=== PATIENT | female | born 1990 | race Caucasian/White ===

== ENCOUNTER 2024-12-02 09:17 | Outpatient (OUT) | payer OTHER, SELFPAY ==
--- OUTSIDE RECORDS SUMMARY | 2024-12-02 09:26 | XMS_ITS | Clinical Summary ---
Author Organization [facility] Invoiceable [facility] tem Address [id number] [address] [place] [address] Care Team Providers Care Crusher Machine Operator Name Role Phone Unavailable Primary Care Provider Unavailabl e Allergies No known active allergies Medications ondansetron ODT (ZOFRAN ODT) 4 mg disintegrating tablet Dissolve 1 tablet (4 mg total) on tongue every 8 (eight) hours as needed for nausea for up to 10 doses. 10 tablet 05/18/19 25 Active Additional Information Patient not taking.Reported on 10/30/2024 ketorolac (TORADOL) 10 mg tablet Take 1 tablet (10 mg total) by mouth every 6 (six) hours as needed for pain. 20 tablet 10/31/19 25 Active ondansetron ODT (ZOFRAN ODT) 4 mg disintegrating tablet Dissolve 1 tablet (4 mg total) on tongue every 8 (eight) hours as needed for nausea for up to 10 doses. 10 tablet 10/31/19 25 Active tamsulosin (FLOMAX) 0.4 mg capsule Take 1 capsule (0.4 mg total) by mouth in the morning. 10 capsule 10/31/19 25 Active Encounters Date Type Department Care Team Description 10/30/2024 3:09 PM EDT - 10/30/2024 5:38 PM EDT Emergency [facility] - Emergency [address] [place] [address] Maryanne Najera, Calculus of ureter (Primary Dx) Discharge Disposition: Home 10/30/2024 Travel 10/22/2024 Travel 09/20/2024 Travel from Last 3 Months Social History Tobacco Use Types Packs/Day Years Used Date Smoking Tobacco: Never Assessed Childcare Answer Date Recorded Childcare Unknown 08/01/2018 Employment Answer Date Recorded Employment Unknown 08/01/2018 Hunger Screening Answer Date Recorded Within the past 12 months we worried whether our food would run out before we got money to buy more. Never True 10/30/2024 Within the past 12 months th e food we bought just didn't last and we didn't have money to get more. Never True 10/30/2024 Purpose - Life Answer Date Recorded Purpose and direction in life Unknown Comments No Sex and Gender Information Value Date Recorded Sex Assigned at Not on file Legal Sex Female 11:45 AM EDT Gender Identity Not on file Sexual Orientation Not on file Last Filed Vital Signs Vital Sign Reading Time Taken Comments Blood Pressure 150/88 10/30/2024 5:36 PM EDT Pulse 98 10/30/2024 5:36 PM EDT Temperature 36.8 C (98.2 F) 10/30/2024 3:04 PM EDT Respiratory Rate 18 10/30/2024 5:36 PM EDT Oxygen Saturation 98% 10/30/2024 5:36 PM EDT Inhaled Oxygen Concentration - - Weight 77.1 kg (170 lb) 10/30/2024 3:04 PM EDT Height 157.5 cm (5' 2 ) 10/30/2024 3:04 PM EDT Body Mass Index 31.09 10/30/2024 3:04 PM EDT Plan of Treatment Health Maintenance Due Date Last Done Comments Depression Screening 2002 Tobacco Screening 2002 Adult BMI Follow Up Plan 2008 DTaP,Tdap and Td Vaccines (1 - Tdap) 2009 Pap Smear 2011 Influenza Vaccine 10/21/2024 Adult BMI Screening 10/30/2025 10/30/2024 Medical Devices Not on file Procedures Procedure Name Priority Date/Time Associated Diagnosis Comments POCT , URINE (NUCG) Routine 10/30/2024 4:43 PM EDT POCT NURSING URINE MACROSCOPIC UA Routine 10/30/2024 4:42 PM EDT POCT NURSING URINE MACROSCOPIC UA Routine 10/30/2024 4:42 PM EDT ER EXTRA URINE MARBLE STAT 10/30/2024 4:27 PM EDT ER EXTRA URINE CULTURE STAT 10/30/2024 4:27 PM EDT ER EXTRA URINE STAT 10/30/2024 4:[address] ABDOMEN AND PELVIS WO CONT STAT 10/30/2024 3:54 PM EDT CBC WITH AUTO DIFFERENTIAL STAT 10/30/2024 3:29 PM EDT EXTRA TUBES PST TOP Routine 10/30/2024 3 :28 PM EDT EXTRA TUBES BLUE TOP Routine 10/30/2024 3:28 PM EDT BASIC METABOLIC PANEL STAT Add-on 10/30/2024 3:28 PM EDT EXTRA TUBES Routine 10/30/2024 3:28 PM EDT from Last 3 Months Results * POCT , urine (10/30/2024 4:43 PM EDT) Pathologist [facility] POC Urine Negative Negative, Indeterminate 10/30/2024 4:36 PM EDT [facility] Urine 10/30/2024 4:43 PM EDT 10/30/2024 4:36 PM EDT us Maryanne Najera DO POINT OF CARE TEST ORDERABLE S Final Result [facility] [address] [place] [address], [place] * (ABNORMAL) POCT Nursing Urine Macroscopic UA (10/30/2024 4:42 PM EDT) Only the most recent of2 resultswithin the time period is included. Pathologist [facility] [facility] Urine Specific Mears 1.025 1.010, 1.015, 1.020, 1.025 11/01/2024 9:33 AM EDT [facility] POC Urine Leukocyte Esterase Negative Negative 11/01/2024 9:33 AM EDT [facility] POC Urine Nitrite Negative Negative 11/01/2024 9:33 AM EDT [facility] POC Urine pH 6.0 5.0, 6.0, 6.5, 7.0, 7.5, 8.0, 8.5, 5.5 11/01/2024 9:33 AM EDT [facility] POC Urine Protein 30 mg/dL(A) Negative 11/01/2024 9:33 AM EDT [facility] POC Urine Glucose Negative Negative 11/01/2024 9:33 AM EDT [facility] POC Urine Ketones 15 mg/dL(A) Negative 11/01/2024 9:33 AM EDT [facility] POC Urine Urobilinogen 1.0 E.U./dL 11/01/2024 9:33 AM EDT [facility] POC Urine Bilirubin Small(A) Negative 11/01/2024 9:33 AM EDT [facility] POC Urine Blood/HGB Large(A) Negative 11/01/2024 9:33 AM EDT [facility] Urine 10/30/2024 4:42 PM EDT 11/01/2024 9:33 AM EDT us Maryanne Najera DO POINT OF CARE TEST ORDERABLE S Final Result [facility] [address] [place] [address], * Extra Urine Butternut (10/30/2024 4:27 PM EDT) Extra Tube Auto Resulted 10/30/2024 6:02 PM EDT [facility] Urine Urine specimen collection, clean catch / Unknown 10/30/2024 4:27 PM EDT 10/30/2024 4:49 PM EDT us Trentadilene Declan Dania DO URINE ORDERABLES Final Resul t Performing Organization Address [facility] de Phone Number [address] [place] [address], [place] * Extra Urine Culture (10/30/2024 4:27 PM EDT) Extra Tube Auto Resulted 10/30/2024 6:02 PM EDT [facility] Urine Urine specimen collection, clean catch / Unknown 10/30/2024 4:27 PM EDT 10/30/2024 4:49 PM EDT us Trentadilene Acostaatib DO URINE ORDERABLES Final Resul t Performing Organization Address [facility] de Phone Number [address] [place] [address], [place] * Extra Urine (10/30/2024 4:27 PM EDT) Extra Tube Auto Resulted 10/30/2024 6:01 PM EDT [facility] Urine Urine / Unknown 10/30/2024 4 :27 PM EDT 10/30/2024 4:49 PM EDT us Trentadilene Declan HernandezDania DO URINE ORDERABLES Final Resul t Performing Organization Address [facility] de Phone Number [address] [place] [address], [place] * CT abdomen and pelvis without contrast (10/30/2024 3:54 PM EDT) Anatomical Region Laterality Modality Body, Abdomen, Body Covera N/A Compu lois Tomography 10/30/2024 3:55 PM EDT Narrative 10/30/2024 3:56 PM EDT CLINICAL INFORMATION: kidney stone TECHNIQUE: CT ABDOMEN AND PELVIS WO CONT CT images of the abdomen and pelvis are obtained. Studies acquired without contrast. There is right hydronephrosis and hydroureter secondary to a 4 mm distal right ureteral calculus. Bilateral nonobstructive renal calculi also appreciated. Noncontrast enhanced liver and spleen unremarkable. Lung bases clear. No focal hepatic or splenic abnormality. Gallbladder nondistended without cholelithiasis. Small bowel is nondistended. There is no free pelvic fluid. No appreciable adnexal amount. Osseous structures appear intact. Appendix unremarkable. IMPRESSION: Mild right hydronephrosis secondary to 4 mm distal right ureteral calculus. Bilateral nonobstructive renal calculi. All CT scans at this facility use dose modulation, iterative reconstruction, and/or weight based dosing when appropriate to reduce radiation dose to as low as reasonably achievable. Finalized by Rolo Perez MD on 10/30/2024 3:56 PM Procedure Note Rolo Perez MD - 10/30/2024 CLINICAL INFORMATION: kidney stone TECHNIQUE: CT ABDOMEN AND PELVIS WO CONT CT images of the abdomen and pelvis are obtained. Studies acquired withoutcontrast. There is right hydronephrosis and hydroureter secondary to a 4mm distal right ureteral calculus. Bilateral nonobstructive renal calculialso appreciated. Noncontrast enhanced liver and spleen unremarkable. Lung bases clear. No focal hepatic or splenic abnormality. Gallbladdernondistended without cholelithiasis. Small bowel is nondistended. There isno free pelvic fluid. No appreciable adnexal amount. Osseous structuresappear intact. Appendix unremarkable. IMPRESSION: Mild right hydronephrosis secondary to 4 mm distal right ureteralcalculus. Bilateral nonobstructive renal calculi. All CT scans at this facility use dose modulation, iterativereconstruction, and/or weight based dosing when appropriate to reduceradiation dose to as low as reasonably achievable. Finalized by Rolo Perez MD on 10/30/2024 3:56 PM us Maryanne Najera DO IMG CT ORDERABLES Final Resu lt * (ABNORMAL) CBC auto differential (10/30/2024 3:29 PM EDT) [facility] WBC 7.6 4 - 11 x10E9/L 10/30/2024 3:46 PM EDT [facility] RBC Count 4.91 3.8 - 5.2 X10E12/L 10/30/2024 3:46 PM EDT [facility] Hemoglobin 13.1 11.7 - 15.5 g/dL 10/30/2024 3:46 PM EDT [facility] Hematocrit 38.7 35 - 47 % 10/30/2024 3:46 PM EDT [facility] MCV 79(L) 80 - 100 fL 10/30/2024 3:46 PM EDT [facility] MCH 26.7(L) 27 - 34 pg 10/30/2024 3:46 PM EDT [facility] MCHC 33.9 32 - 36 g/dL 10/30/2024 3:46 PM EDT [facility] RDW 14.3 11.5 - 15 % 10/30/2024 3:46 PM EDT [facility] Platelet Count 255 150 - 450 X10E9/L 10/30/2024 3:46 PM EDT [facility] MPV 8.3 7 - 12 fL 10/30/2024 3:46 PM EDT [facility] Neutrophils % 77.8 % 10/30/2024 3:46 PM EDT [facility] Lymphocytes % 14.8 % 10/30/2024 3:46 PM EDT [facility] Monocytes % 5.3 % 10/30/2024 3:46 PM EDT [facility] Eosinophils % 1.6 % 10/30/2024 3:46 PM EDT [facility] Basophils % 0.5 % 10/30/2024 3:46 PM EDT [facility] Neutrophils Absolute (A) 5.9 1.5 - 6.6 10*3/uL 10/30/2024 3:46 PM EDT [facility] Lymphocytes Absolute 1.1 1.0 - 3.5 10*3/uL 10/30/2024 3:46 PM EDT [facility] Monocytes Absolute 0.4 0.0 - 0.9 10*3/uL 10/30/2024 3:46 PM EDT [facility] Eosinophils Absolute 0.1 0.0 - 0.4 10*3/uL 10/30/2024 3:46 PM EDT [facility] Basophils Absolute 0.0 0.0 - 0.2 10*3/uL 10/30/2024 3:46 PM EDT [facility] Differential Type AUTOMATED DIFFERENTIAL 10/30/2024 3:46 PM EDT [facility] Blood Venous blood / Unknown Venipuncture / Unknown 10/30/2024 3:29 PM EDT 10/30/2024 3:30 PM EDT us Maryanne Najera DO LAB BLOOD ORDERABLES Final R esult [address] [place] [address], [place] * PST TOP (10/30/2024 3:28 PM EDT) Extra Tube Auto Resulted 10/30/2024 5:01 PM EDT [facility] Blood Venous blood / Unknown 10/30/2024 3:28 PM EDT 10/30/2024 3:31 PM EDT us Maryanne Najera DO LAB BLOOD ORDERABLES Final R esult [address] [place] [address], [place] * Light Blue Top (10/30/2024 3:28 PM EDT) Extra Tube Auto Resulted 10/30/2024 5:01 PM EDT [facility] Blood Venous blood / Unknown 10/30/2024 3:28 PM EDT 10/30/2024 3:31 PM EDT us Maryanne Najera DO LAB BLOOD ORDERABLES Final R esult [facility] [address] [place] [address], [place] * (ABNORMAL) Basic Metabolic Panel (10/30/2024 3:28 PM EDT) SODIUM 140 134 - 146 mmol/L 10/30/2024 3:48 PM EDT [facility] POTASSIUM 3.9 3.5 - 5.0 mmol/L 10/30/2024 3:48 PM EDT [facility] CHLORIDE 109 98 - 109 mmol/L 10/30/2024 3:48 PM EDT [facility] CARBON DIOXIDE 24 22 - 32 mmol/L 10/30/2024 3:48 PM EDT [facility] ANION GAP 7 5 - 15 mmol/L 10/30/2024 3:48 PM EDT [facility] BLOOD UREA NITROGEN 18 5 - 23 mg/dL 10/30/2024 3:48 PM EDT [facility] CREATININE 1.17(H) 0.40 - 1.00 mg/dL 10/30/2024 3:48 PM EDT [facility] Comment:METHOD TRACEABLE TO IDMS STANDARD GLUCOSE 102(H) 65 - 99 mg/dL 10/30/2024 3:48 PM EDT [facility] CALCIUM 8.6 8.5 - 10.5 mg/dL 10/30/2024 3:48 PM EDT [facility] EGFR Non-Race Dependent 63 >=60 ml/min/1.7 3sq.m 10/30/2024 3:48 PM EDT [facility] Comment: eGFR not reported due to non-numeric value for Creatinine. Reported eGFR is based on the CKD-EPI 2020 equation that does not use a race coefficient. Blood Venous blood / Unknown 10/30/2024 3:28 PM EDT 10/30/2024 3:31 PM EDT us Maryanne Najera DO LAB BLOOD ORDERABLES Final R esult [facility] [address] [place] [address], [place] from Last 3 Months Insurance [address] [place] [address] [employer]
--- OUTSIDE RECORDS SUMMARY | 2024-12-02 09:26 | XMS_ITS | Encounter Summary ---
Author Organization [facility] Healthcare Address [address] [facility] [place] [address] Care Team Providers Care Respiratory Therapy Aide Name Role Phone Josiane Cooper MD Primary Care Provider [phone] Savannah Canela CARPENTRY TEACHER Unavailable [phone] Encounter Details Date Type Department Care Team (Latest Contact Info) Description 11/08/2024 Results Follow-Up [facility] Family Medicine [address] [facility] [place] [phone] Savannah Canela NP [address] [facility] [place] [address] Lipid panel, CBC and differential, Comprehensive metabolic panel, Additional followed-up results: 2 Social History Tobacco Use Types Packs/Day Years Used Date Smoking Tobacco: Never Assessed PHQ-2 Answer Date Recorded Patient Health Questionnaire-2 Score 0 11/07/2024 Comments Unknown Sex and Gender Information Value Date Recorded Sex Assigned at Not on file Legal Sex Female 9:35 PM EDT Gender Identity Not on file Sexual Orientation Not on file documented as of this encounter Plan of Treatment Not on file documented as of this encounter Visit Diagnoses Not on filedocumented in this encounter Additional Health Concerns Assessment Noted Time PHQ-9 Depression Total Score: 1 11/08/19 2:11 PM EDT documented as of this encounter Care Teams Respiratory Therapy Aide Relationship Specialty Start Date End Date Josiane Cooper MD [address] [facility] [place], [place] [id number] PCP - General Family Medicine 11/07/24 Savannah Canela NP [address] [place] [address] Nurse Practitioner Family Medicine 11/07/24 documented as of this encounter
--- NOTE | 2024-12-02 09:37 | XR_ITS ---
The [address] [address] Patient Name: SUSAN RICHARDS MRN: [id number] date: 1990 Sex: F Assigned Patient Location: [facility] Current Patient Location: [facility] Accession/Order Number: [id number] Exam Date: 12/02/2024 09:44 Report Date: 12/02/2024 10:11 At the request of: ARISTIDES FLORENTINO MD Procedure: XR abdomen 1V SINGLE VIEW ABDOMEN COMPARISON: None CLINICAL DATA: History of recent right-sided kidney stone. Supine views of the abdomen and pelvis were obtained. There is air and stool along the colon. There is some air within the stomach. No dilated small bowel is seen. Both kidneys are partially obscured. There is question of a tiny stone within the right kidney measuring 2 mm in size. Small stones are also possible on the left. There are no suspect radiopaque ureteral or bladder stones. No soft tissue masses are identified. The bony structures are intact. XR/XR abdomen 1V IMPRESSION: SLIGHT LIMITED STUDY DUE TO BOWEL GAS AND STOOL. POSSIBLE BILATERAL NEPHROLITHIASIS. COMPARISON TO ANY PRIOR EXISTING STUDIES MAY BE HELPFUL. Impression dictated by: Janeen East M.D. 12/02/2024 10:11 AM Dictation Location: [place] [address] Electronically authenticated by: [id number] Y Date: 12/02/2024 10:11
== END 2024-12-02 09:18 | disposition home or self-care (01) ==
PROVIDERS: Family Provider Family Medicine; Visit Provider Urology
DX: N20.0 Calculus of kidney (principal); N20.1 Calculus of ureter
CPT/HCPCS: 74018

== ENCOUNTER 2024-12-04 11:23 | Outpatient (OUT) | payer OTHER, SELFPAY ==
--- OUTSIDE RECORDS SUMMARY | 2024-12-02 09:23 | XMS_ITS | Encounter Summary ---
Author Organization [facility] Address [address] [place] [address] Care Team Providers Care Merchandise Displayer Name Role Phone Lucas Mayers MD Primary Care Provider [phone] Encounter Details Date Type Department Care Team (Latest Contact Info) Description 12/02/2024 9:23 AM EDT - 12/02/2024 11:59 PM EDT Hospital Encounter [facility] [address] [id number] Closed bimalleolar fracture of left ankle, initial encounter Discharge Disposition: Home or Self Care () Social History Tobacco Use Types Packs/Day Years Used Date Smoking Tobacco: Never Smokeless Tobacco: Never Alcohol Use Standard Drinks/Week Comments Never 0 (1 standard drink = 0.6 oz pur e alcohol) [facility] Utilities Answer Date Recorded In the past 12 months has e [employer], gas, oil, or water [employer] threatened to shut off services in your home? No 06/11/2024 Humiliation, Afraid, Rape, and Kick questionnair e Answer Date Recorded Within the last year, have y ou been afraid of your partner or ex-partner? No 12/02/2024 Emotionally Abused Not on file 12/02/2024 Physically Abused Not on file 12/02/2024 Sexually Abused Not on file 12/02/2024 Overall Financial Resource Strain (CARDIA) Answe r Date Recorded How hard is it for you to pa y for the very basics like food, housing, medical care, and heating? Not very hard 06/11/2024 PHQ-2 Answer Date Recorded Patient Health Questionnaire-2 Score 0 12/02/2024 Housing Stability Vital Sign Answer Juan Manuel e Recorded In the last 12 months, was t here a time when you were not able to pay the mortgage or rent on time? No 06/11/2024 Number of Times Moved in the Last Year Not on fi le 06/11/2024 At any time in the past 12 m [facility], were you homeless or living in a correction (including now)? No 06/11/2024 Hunger Vital Sign Answer Date Recorded Within the past 12 months, y ou worried that your food would run out before you got the money to buy more. Never true 06/12/19 25 Ran Out of Food in the Last Year Not on file 06/11/2024 Comments No Sex and Gender Information Value Date Recorded Sex Assigned at Female 12/02/2024 2:30 PM EDT Legal Sex Female 8:27 AM EDT Gender Identity Female 12/02/2024 2:30 PM EDT Sexual Orientation Choose not to disclose 2024 2:30 PM EDT documented as of this encounter Functional Status * Fall Risk Question Answer Date of Assessment Author Worried about fallin 12/02/2024 3:00 PM EDT Shanita Wakefield MA One or more falls in the last year: No 12/02 3:00 PM EDT Shanita Wakefield MA Feels unsteady when walkin 12/02/2024 3 :00 PM EDT Shanita Wakefield MA * Over the past 2 weeks, how often have you been bothered by any of the following problems? Question Answer Date of Assessment Author Thoughts that you would be b kaylie off or hurting yourself in some way Not at all 12/02/2024 3:00 PM EDT Shanita Wakefield MA Patient Health Questionnaire -9 Score 0 12/02/2024 3:00 PM EDT Shanita Wakefield MA Trouble falling or staying asleep, or sleeping too much Not at all 12/02/2024 3:00 PM EDT Shanita Wakefield MA Feeling tired or having jose miguel le energy Not at all 12/02/2024 3:00 PM EDT Shanita Wakefield MA Poor appetite or overeating Not at all 12/02/2024 3: 00 PM EDT Shanita Wakefield MA Feeling bad about yourself - or that you are a failure or have let yourself or your family down Not at all 12/02/2024 3:00 PM EDT Shanita Pelletier do, MA Trouble concentrating on thi ngs, such as reading the newspaper or watching television Not at all 12/02/2024 3:00 PM EDT Shanita Wakefield MA Moving or speaking so slowly that other people could have noticed? Or the opposite - being so fidgety or restless that you have been moving around a lot more than usual. Not at all 12/02/2024 3:00 PM EDT Shanita Wakefield MA * Over the past 2 weeks, how often have you been bothered by any of the following problems? Question Answer Date of Assessment Author Little interest or pleasure in doing things Not at all 12/02/2024 3:00 PM EDT Shanita Wakefield MA Feeling down, depressed, or hopeless Not at all 12/02/2024 3:00 PM EDT Shanita Wakefield MA Patient Health Questionnaire -2 Score 0 12/02/2024 3:00 PM MELISSAT Shanita Wakefield MA documented as of this encounter Medications at Time of Discharge cholecalciferol (Vitamin D-3) 50 MCG (2000 UT) tablet Take by mouth in the morning. 05/28/2024 ergocalciferol (Vitamin D-2) 1.25 MG (14083 Units) capsuleIndications:S /P surgical manipulation of ankle joint Take 1 capsule (50,000 Units) by mouth 1 (one) time per week. 4 capsule 11 05/28/2024 ergocalciferol (Vitamin D-2) 1.25 MG (86716 Units) capsuleIndications:C losed bimalleolar fracture of left ankle, initial encounter Take 1 capsule by mouth once a week 4 capsule 06/26/2024 ondansetron ODT (Zofran-ODT) 4 mg disintegrating tablet Take 4 mg by mouth every 8 (eight) hours if needed. 05/17/2024 documented as of this encounter Plan of Treatment Upcoming Encounters Date Type Department Care Team (Late st Contact Info) Description 06/02/2025 1:00 PM EDT Follow-Up [facility] [address] [place] [address] [place] [address] Patrick Randle MD [address] [address] documented as of this encounter Procedures Procedure Name Priority Date/Time Associated Diagnosis Comments XR ANKLE 3+ VIEWS LEFT Routine 12/02/2024 2:51 PM EDT Closed bimalleolar fracture of left ankle, initial encounter documented in this encounter Results * XR ankle 3+ views left (12/02/2024 2:51 PM EDT) Anatomical Region Laterality Modality Lower Extremities, Ankle Left Compute d Radiography 12/02/2024 3:04 PM EDT Impressions 12/02/2024 4:35 PM EDT * No acute osseous abnormalities. * Distal tibia fibula fracture fixation hardware present without complication. * Apparent healing of tibia-fibula fractures. Approved by:Sally Stock12/02/2024 3:36 PM. IPj MD,have reviewed the image(s) and agree with the findings in this report. Electronically signed: Pj Crump MD. Narrative 12/02/2024 4:35 PM EDT XR ANKLE 3+ VIEWS LEFT 12/02/2024 2:44 PM CLINICAL INDICATIONS: Closed bimalleolar fracture of the left ankle COMPARISON: Multiple radiographs of the left ankle most recent 09/03/2024 FINDINGS: Distal tibia fibula fracture fixation hardware present without complication. 1.2 cm bone fragment posterior to the proximal end of the fibular fixation plate. Fractures appear healed. Ankle joint is aligned without significant degenerative change. Plantar calcaneal enthesophyte. No destructive osseous lesions. Osseous structures are well mineralized. Procedure Note Pj Crump MD - 12/02/2024 XR ANKLE 3+ VIEWS LEFT 12/02/2024 2:44 PM CLINICAL INDICATIONS: Closed bimalleolar fracture of the left ankle COMPARISON: Multiple radiographs of the left ankle most [id number]/03/2024 FINDINGS: Distal tibia fibula fracture fixation hardware present withoutcomplication. 1.2 cm bone fragment posterior to the proximal end of the fibular fixationplate. Fractures appear healed. Ankle joint is aligned without significantdegenerative change. Plantar calcaneal enthesophyte. No destructive osseous lesions.Osseous structures are well mineralized. IMPRESSION: *No acute osseous abnormalities. *Distal tibia fibula fracture fixation hardware present without complication. *Apparent healing of tibia-fibula fractures. Approved by:Sally Stock12/02/2024 3:36 PM. I, Pj Crump MD,have reviewed the image(s) and agree with thefindings in this report. Electronically signed: Pj Crump MD. Patrick Randle MD IMG XR PROCEDURES Final Result documented in this encounter Visit Diagnoses Diagnosis Closed bimalleolar fracture of left ankle, initial encounter documented in this encounter Care Teams Merchandise Displayer Relationship Specialty Start Date End Date Lucas Mayers MD [address] [place] [address] PCP - General Family Medicine 05/28/24 documented as of this encounter
--- OUTSIDE RECORDS SUMMARY | 2024-12-02 15:00 | XMS_ITS | Encounter Summary ---
Author Organization [facility] Address [address] [place] [address] Care Team Providers Care Reproduction Technician Name Role Phone Lucas Mayers MD Primary Care Provider [phone] Reason for Visit * Reason Comments Follow-up Encounter Details Date Type Department Care Team ([facility] st Contact Info) Description 12/02/2024 3:00 PM EDT Follow-Up [facility] [address] [place] [address] [place] [phone] Patrick Randle MD [address] [address] Closed bimalleolar fracture, left, with routine healing, subsequent encounter (Primary Dx) Social History Tobacco Use Types Packs/Day Years Used Date Smoking Tobacco: Never Smokeless Tobacco: Never Tobacco Cessation:Counseling Given: Not Answered Alcohol Use Standard Drinks/Week Comments Never 0 (1 standard drink = 0.6 oz pur e alcohol) [facility] Utilities Answer Date Recorded In the past 12 months has [employer] [place] [employer], gas, oil, or water [employer] threatened to shut off services in your [...] any time in the past 12 m [facility], were you homeless or living in a prison (including now)? No 06/11/2024 Hunger Vital Sign [...] PM EDT documented as of this encounter Last Filed Vital Signs Vital Sign Reading Time Taken Comments Blood Pressure - - Pulse - - Temperature - - Respiratory Rate - - Oxygen Saturation - - Inhaled Oxygen Concentration - - Weight 77.1 kg (170 lb) 12/02/2024 3:06 PM EDT Height 157.5 cm (5' 2 ) 12/02/2024 3:06 PM EDT Body Mass Index 31.09 12/02/2024 3:06 PM EDT documented in this encounter Functional Status * Fall Risk [...] Questionnaire -2 Score 0 12/02/2024 3:00 PM EDT Shanita Wakefield MA documented as of this encounter Progress Notes * Patrick Randle MD - 12/02/2024 3:00 PM EDT Images from the original note were not included. Orthopedic Surgery Subjective Chief complaint: Chief Complaint Patient presents with Left Ankle - Follow-up 12/02/24 Laurence Buchanan is a 34 y.o. year old female here for follow up 6+ month s/p ORIF left ankle performed on 05/28/2024. Doing well. Denies pain. FWB in regular shoes. Continue to do home ankle exercises for ROM and strengthening. Reports occasional stiffness especially in morning. No issues or concerns today. She has been taking Vitamin D. Denies weakness, tingling or numbness. ROS Constitutional: Denies Musculoskeletal: No back pain Skin: Denies any skin lesions Neurological: No tingling, numbness, weakness History Past Surgical History: Procedure Laterality Date WISDOM TOOTH EXTRACTION Past Medical History: Diagnosis Date Closed bimalleolar fracture of right ankle Objective General: BMI 31.09 No acute distress, comfortable Respiratory: Unlabored breathing with normal rate, no cough Cardiovascular: Warm well perfused extremities Psych: Appropriate mood behavior Evaluation of the left ankle/foot: - well-healed surgical scars - Good clinical alignment - No swelling - Non-tender to palpation - Active ankle ROM 5-40, subtalar ROM 30-15 - 5/5 all muscle groups - Foot well perfused and NVI. Imaging: Weight bearing left ankle X-rays, 3 views obtained today 12/02/24 shows stable alignment and hardware, and healed ankle fracture Imaging was reviewed and interpreted by me, and findings were reviewed with the patient. Assessment/Plan Laurence Buchanan is a 34 y.o. year old female 6+ months s/p ORIF left ankle fracture (DOS 05/28/21) - progressing very well No issues or concerns today Today's X-rays were reviewed Vit D was optimized (repeat Vit D on 07/09/24 is 41.1 up from 12.2 on 05/28/24) Plan - Continue to advance activities as tolerated using pain as a guide, no restrictions - Continue home exercise program for ankle ROM and strengthening - Continue proper / supportive shoewear - Continue Vit D intake - Follow-up in 6 months The patient understands and agrees to the management plan, and all patient questions have been answered to her satisfaction. Closed bimalleolar fracture, left, with routine healing, subsequent encounter Patrick Randle MD Orthopedic Surgery, [employer] [facility] 12/02/24 documented in this encounter Plan of Treatment Upcoming Encounters Date Type Department Care Team (Late st Contact Info) Description 06/02/2025 1:00 PM EDT Follow-Up [facility] Orthopaedics [address] [place] [address] [place] [address] Patrick Randle MD [address] [facility] [address] [place] [address] documented as of this encounter Results * XR ankle 3+ [...] Multiple radiographs of the left ankle most [id number]/03/2024 FINDINGS: Distal tibia fibula fracture fixation hardware [...] this encounter Visit Diagnoses Diagnosis Closed bimalleolar fracture, left, with routine healing, subsequent encounter- Primary Closed bimalleolar fracture of left ankle, initial encounter documented in this encounter Care Teams Reproduction Technician Relationship Specialty Start Date End Date Lucas Mayers MD [address] [place] [address] PCP - General Family Medicine 05/28/24 documented as of this encounter
--- OUTSIDE RECORDS SUMMARY | 2024-12-04 11:26 | XMS_ITS | Encounter Summary ---
Author Organization [facility] Healthcare Address [address] [facility] [place] [address] Care Team Providers Care Aoc Aadc Operations Staff Officer Name Role Phone Josiane Cooper MD Primary Care Provider [phone] Savannah Canela MEDICAL GENETICIST Unavailable [phone] Encounter Details Date Type Department Care Team (Latest Contact Info) Description 11/08/2024 Results Follow-Up [facility] Family Medicine [address] [facility] [place] [phone] Savannah Canela NP [address] [facility] [place] [address] Lipid panel, CBC and differential, Comprehensive metabolic [...] documented as of this encounter Care Teams Aoc Aadc Operations Staff Officer Relationship Specialty Start Date End Date Josiane Cooper MD [address] [facility] [place], [place] [phone] PCP - General Family Medicine 11/07/24 Savannah Canela NP [address] [place] [address] Nurse Practitioner Family Medicine 11/07/24 documented as of this encounter
--- OUTSIDE RECORDS SUMMARY | 2024-12-04 11:26 | XMS_ITS | Clinical Summary ---
Author Organization [facility] Healthcare Address [address] [facility] [place] [address] Care Team Providers Care Photographic Equipment Inspector Name Role Phone Josiane Cooper MD Primary Care Provider [phone] Savannah Canela SOFTWARE INTERN Unavailable [phone] Allergies No known active allergies Medications ketorolac (Toradol) 10 MG tablet Take 10 mg by mouth every 6 (six) hours if needed 5 Active ondansetron ODT (Zofran-ODT) 4 MG disintegrating tablet Take 4 mg by mouth every 8 (eight) hours if needed 5 Active tamsulosin (Flomax) 0.4 MG 24 hr capsuleIndications :Kidney stones Take 1 capsule (0.4 mg) by mouth in the morning. 30 capsule 5 12/12/19 25 Active tamsulosin (Flomax) 0.4 MG 24 hr capsule Take 0.4 mg by mouth in the morning. 5 11/12/19 25 Discontin ued(Reord er) Encounters Date Type Department Care Team Description 11/11/2024 Orders Only [facility] [address] [place] [address] Savannah Canela NP Kidney stones (Primary Dx) 11/08/2024 Results Follow-Up [facility] [address] [facility] [place] [address] Savannah Canela NP Lipid panel, CBC and differential, Comprehensive metabolic panel, Additional followed-up results: 2 11/07/2024 2:00 PM EDT Office Visit [facility] Medicine [address] [facility] [place] [address] Savannah Canela NP Wellness examination (Primary Dx); Kidney stones; History of vitamin D deficiency; Encounter to establish care with new provider 11/07/2024 Bamboo flowsheet [facility] [address] [place] [address] Savannah Canela NP 11/07/2024 Travel from Last 3 Months Family History Medical History Relation Name Comments Multiple sclerosis Sister Relation Name Status Comments Sister Social History Tobacco Use Types Packs/Day Years [...] Sign Reading Time Taken Comments Blood Pressure 134/80 11/07/2024 2:02 PM EDT Pulse 94 11/07/2024 2:02 PM EDT Temperature 36.3 C (97.3 F) 11/07/2024 2:02 PM EDT Respiratory Rate - - Oxygen Saturation 98% 11/07/2024 2:02 PM EDT Inhaled Oxygen Concentration - - Weight 78.2 kg (172 lb 6.4 oz) 11/07/2024 2:02 P M EDT Height 158.8 cm (5' 2.5 ) 11/07/2024 2:02 PM EDT Body Mass Index 31.03 11/07/2024 2:02 PM EDT Plan of Treatment Health Maintenance Due Date Last Done Comments Pap Smear 2011 Cervical Cancer Screening 2020 HPV/Cotest 2020 Influenza Vaccine (#1) 2024 Procedures Procedure Name Priority Date/Time Associated Diagnosis Comments VITAMIN D 25 HYDROXY TOTAL Routine 11/07/2024 2:33 PM EDT Wellness examination TSH W/REFLEX TO FT4 Routine 11/07/2024 2 :33 PM EDT Wellness examination COMPREHENSIVE METABOLIC PANEL Routine 11/07/2024 2:33 PM EDT Wellness examination CBC (INCLUDES DIFF/PLT) Routine 11/07/2024 2:33 PM EDT Wellness examination LIPID PANEL Routine 11/07/2024 2:33 PM EDT Wellness examination from Last 3 Months Results * TSH W/REFLEX TO FT4 (11/07/2024 2:33 PM EDT) TSH W/REFLEX TO FT4 0.54 mIU/L [facility] Comment: Reference Range > or = 20 Years 0.40-4.50 Ranges First trimester 0.26-2.66 Second trimester 0.55-2.73 Third trimester 0.43-2.91 11/07/2024 2:33 PM EDT 11/07/2024 2:34 PM EDT Narrative Resulting Agency Comment Performing Organization Information Site ID: QPT Name: [facility] Address: [address] [place] [address], [address] [place] [phone] Director: Korey Anna MD Savannah Canela NP LAB BLOOD ORDERABLES Final Result [facility] * Vitamin D 25 hydroxy (11/07/2024 2:33 PM EDT) VITAMIN D,25-OH,TOTAL,IA 40 30 - 100 ng/mL [facility] Comment: Vitamin D Status 25-OH Vitamin D: Deficiency: <20 ng/mL Insufficiency: 20 - 29 ng/mL Optimal: > or = 30 ng/mL For 25-OH Vitamin D testing on patients on D2-supplementation and patients for whom quantitation of D2 and D3 fractions is required, the QuestAssureD(TM) 25-OH VIT D, (D2,D3), LC/MS/MS is recommended: order code 98482 (patients >2yrs). See Note 1 Note 1 For additional information, please refer to http://education.[employer]/faq/ANG613 (This link is being provided for informational/ educational purposes only.) Blood Venous blood specimen / Unknown 11/07/2024 2:33 PM EDT 11/07/2024 2:34 PM EDT Narrative Resulting Agency Comment Performing Organization Information Site ID: QPT Name: [facility] Address: [address] [place] [address], [address] [place] [phone] Director: Korey Anna MD Savannah Canela SOFTWARE INTERN LAB BLOOD ORDERABLES Final Result [facility] * CBC and differential (11/07/2024 2:33 PM EDT) WHITE BLOOD CELL COUNT 5.5 3.8 - 10.8 Thousand/u L [facility] RED BLOOD CELL COUNT 4.48 3.80 - 5.10 Million/uL [facility] HEMOGLOBIN 12.3 11.7 - 15.5 g/dL [facility] HEMATOCRIT 37.9 35.0 - 45.0 % [facility] MCV 84.6 80.0 - 100.0 fL [facility] MCH 27.5 27.0 - 33.0 pg [facility] MCHC 32.5 32.0 - 36.0 g/dL [facility] Comment: For adults, a slight decrease in the calculated MCHC value (in the range of 30 to 32 g/dL) is most likely not clinically significant; however, it should be interpreted with caution in correlation with other red cell parameters and the patient's clinical condition. RDW 13.0 11.0 - 15.0 % [facility] PLATELET COUNT 253 140 - 400 Thousand/u L [facility] MPV 10.1 7.5 - 12.5 fL [facility] ABSOLUTE NEUTROPHILS 3,977 1,500 - 7,800 cells/uL [facility] ABSOLUTE LYMPHOCYTES 1,161 850 - 3,900 cells/uL [facility] ABSOLUTE MONOCYTES 237 200 - 950 cells/uL [facility] ABSOLUTE EOSINOPHILS 88 15 - 500 cells/uL [facility] ABSOLUTE BASOPHILS 39 0 - 200 cells/uL [facility] NEUTROPHILS 72.3 % [facility] LYMPHOCYTES 21.1 % [facility] MONOCYTES 4.3 % [facility] EOSINOPHILS 1.6 % [facility] BASOPHILS 0.7 % [facility] Blood Venous blood specimen / Unknown 11/07/2024 2:33 PM EDT 11/07/2024 2:34 PM EDT Narrative Resulting Agency Comment Performing Organization Information Site ID: QPT Name: [facility] Address: [address] , [address] [place] [address] Director: Korey Anna MD Savannah Canela LAB BLOOD ORDERABLES Final Result Performing Organization Address City/[facility] Co de Phone Number [facility] * (ABNORMAL) Lipid panel (11/07/2024 2:33 PM EDT) [facility] Signature CHOLESTEROL, TOTAL 184 <200 mg/dL [facility] HDL CHOLESTEROL 56 > OR = 50 mg/dL [facility] TRIGLYCERIDES 50 <150 mg/dL [facility] LDL CHOLESTEROL 115(H) mg/dL (calc) [facility] Comment: Reference range: <100 Desirable range <100 mg/dL for primary prevention; <70 mg/dL for patients with CHD or diabetic patients with > or = 2 CHD risk factors. LDL-C is now calculated using the Barry calculation, which is a validated novel method providing better accuracy than the Friedewald equation in the estimation of LDL-C. Carlton CHAVIS et al. SENTHIL. 2013;310(19): 4375-4453 (http://education.[employer]/faq/ZVO271) CHOL/HDLC RATIO 3.3 <5.0 (calc) [facility] NON HDL CHOLESTEROL 128 <130 mg/dL (calc) [facility] Comment: For patients with diabetes plus 1 major ASCVD risk factor, treating to a non-HDL-C goal of <100 mg/dL (LDL-C of <70 mg/dL) is considered a therapeutic option. Blood Venous blood specimen / Unknown 11/07/2024 2:33 PM EDT 11/07/2024 2:34 PM EDT Narrative Resulting Agency Comment Performing Organization Information Site ID: QPT Name: [facility] Address: [address] , [address] [place] [address] Director: Korey Anna MD [facility] SOFTWARE INTERN LAB BLOOD ORDERABLES Final Result Performing Organization Address [facility] Co de Phone Number [facility] * Comprehensive metabolic panel (11/07/2024 2:33 PM EDT) Glucose 71 65 - 99 mg/dL [facility] Comment: Fasting reference interval BUN 14 7 - 25 mg/dL [facility] Creatinine 0.87 0.50 - 0.97 mg/dL [facility] EGFR 90 > OR = 60 mL/min/1. 73m2 [facility] BUN/CREATININE RATIO SEE NOTE: 6 - 22 (calc) [facility] Comment: Not Reported: BUN and Creatinine are within reference range. Sodium 143 135 - 146 mmol/L [facility] Potassium, Bld 3.8 3.5 - 5.3 mmol/L [facility] Chloride 106 98 - 110 mmol/L [facility] Carbon Dioxide 28 20 - 32 mmol/L [facility] Calcium 8.8 8.6 - 10.2 mg/dL [facility] PROTEIN, TOTAL 7.1 6.1 - 8.1 g/dL [facility] ALBUMIN 4.4 3.6 - 5.1 g/dL [facility] GLOBULIN 2.7 1.9 - 3.7 g/dL (calc) [facility] ALBUMIN/GLOBULIN RATIO 1.6 1.0 - 2.5 (calc) [facility] BILIRUBIN, TOTAL 0.8 0.2 - 1.2 mg/dL [facility] ALKALINE PHOSPHATASE 47 31 - 125 U/L [facility] AST 15 10 - 30 U/L [facility] ALT 12 6 - 29 U/L [facility] Blood Venous blood specimen / Unknown 11/07/2024 2:33 PM EDT 11/07/2024 2:34 PM EDT Narrative Resulting Agency Comment Performing Organization Information Site ID: QPT Name: [facility] Address: [address] [place] [address], [address] [place] [phone] Director: Korey Anna MD Savannah Canela NP LAB BLOOD ORDERABLES Final Result [facility] from Last 3 Months Insurance [employer] Care Teams Photographic Equipment Inspector Relationship Specialty Start Date End Date Josiane Cooper MD [address] [place], [place] [phone] PCP - General Family Medicine 11/07/24 Savannah Canela NP [address] [place], [place] [phone] Nurse Practitioner Family Medicine 11/07/24
--- OUTSIDE RECORDS SUMMARY | 2024-12-04 11:26 | XMS_ITS | Clinical Summary ---
Author Organization [facility] tem Address [id number] [address] [place] [address] Care Team Providers Care Controls Design Engineer Name Role Phone Unavailable Primary Care Provider [...] EDT - 10/30/2024 5:[address] [facility] - Emergency [address] [place] [address] Maryanne Najera, Calculus of ureter (Primary Dx) [...] , urine (10/30/2024 4:43 PM EDT) Pathologist [facility] POC Urine Negative Negative, Indeterminate 10/30/2024 4:36 PM EDT [facility] Urine 10/30/2024 4:43 PM EDT 10/30/2024 4:36 PM EDT us Maryanne Najera DO POINT OF CARE TEST ORDERABLE S Final Result [facility] [address] [place] [address], [place] * (ABNORMAL) POCT Nursing Urine Macroscopic UA (10/30/2024 4:42 PM EDT) Only the most recent of2 resultswithin the time period is included. Pathologist [facility] POC Urine Specific [facility] 1.025 1.010, 1.015, 1.020, 1.025 11/01/2024 9:33 AM EDT [facility] POC Urine Leukocyte Esterase Negative Negative 11/01/2024 9:33 AM EDT [facility] POC Urine Nitrite Negative Negative 11/01/2024 9:33 AM EDT [facility] POC Urine pH 6.0 5.0, 6.0, 6.5, 7.0, 7.5, 8.0, 8.5, 5.5 11/01/2024 9:33 AM EDT [facility] POC Urine Protein 30 mg/dL(A) Negative 11/01/2024 9:33 AM EDT [facility] POC Urine Glucose Negative Negative 11/01/2024 9:33 AM EDT [facility] POC Urine Ketones 15 mg/dL(A) Negative 11/01/2024 9:33 AM EDT [facility] POC Urine Urobilinogen 1.0 E.U./dL 11/01/2024 9:33 AM EDT [facility] POC Urine Bilirubin Small(A) Negative 11/01/2024 9:33 AM EDT [facility] POC Urine Blood/HGB Large(A) Negative 11/01/2024 9:33 AM EDT [facility] Urine 10/30/2024 4:42 PM EDT 11/01/2024 9:33 AM EDT us Maryanne Najera DO POINT OF CARE TEST ORDERABLE S Final Result [facility] [address] [place] [address], * Extra Urine [place] (10/30/2024 4:27 PM EDT) Extra Tube Auto Resulted 10/30/2024 6:02 PM EDT [facility] Urine Urine specimen collection, clean catch / Unknown 10/30/2024 4:27 PM EDT 10/30/2024 4:49 PM EDT us Trentadilene Declan Dania DO URINE ORDERABLES Final Resul t Performing Organization Address [facility] de Phone Number [address] [place] [address], [place] * Extra Urine Culture (10/30/2024 4:27 PM EDT) Extra Tube Auto Resulted 10/30/2024 6:02 PM EDT [facility] Urine Urine specimen collection, clean catch / Unknown 10/30/2024 4:27 PM EDT 10/30/2024 4:49 PM EDT us Trentadilene Acostaatib DO URINE ORDERABLES Final Resul t Performing Organization Address [facility] de Phone Number [address] [place] [address], [place] * Extra Urine (10/30/2024 4:27 PM EDT) Extra Tube Auto Resulted 10/30/2024 6:01 PM EDT [facility] Urine Urine / Unknown 10/30/2024 4 :27 PM EDT 10/30/2024 4:49 PM EDT us Trentadilene Declan HernandezDania DO URINE ORDERABLES Final Resul t Performing Organization Address [facility] de Phone Number [address] [place] [address], [place] * CT abdomen and pelvis without [...] CBC auto differential (10/30/2024 3:29 PM EDT) [facility] WBC 7.6 4 - 11 x10E9/L 10/30/2024 3:46 PM EDT [facility] RBC Count 4.91 3.8 - 5.2 X10E12/L 10/30/2024 3:46 PM EDT [facility] Hemoglobin 13.1 11.7 - 15.5 g/dL 10/30/2024 3:46 PM EDT [facility] Hematocrit 38.7 35 - 47 % 10/30/2024 3:46 PM EDT [facility] MCV 79(L) 80 - 100 fL 10/30/2024 3:46 PM EDT [facility] MCH 26.7(L) 27 - 34 pg 10/30/2024 3:46 PM EDT [facility] MCHC 33.9 32 - 36 g/dL 10/30/2024 3:46 PM EDT [facility] RDW 14.3 11.5 - 15 % 10/30/2024 3:46 PM EDT [facility] Platelet Count 255 150 - 450 X10E9/L 10/30/2024 3:46 PM EDT [facility] MPV 8.3 7 - 12 fL 10/30/2024 3:46 PM EDT [facility] Neutrophils % 77.8 % 10/30/2024 3:46 PM EDT [facility] Lymphocytes % 14.8 % 10/30/2024 3:46 PM EDT [facility] Monocytes % 5.3 % 10/30/2024 3:46 PM EDT [facility] Eosinophils % 1.6 % 10/30/2024 3:46 PM EDT [facility] Basophils % 0.5 % 10/30/2024 3:46 PM EDT [facility] Neutrophils Absolute (A) 5.9 1.5 - 6.6 10*3/uL 10/30/2024 3:46 PM EDT [facility] Lymphocytes Absolute 1.1 1.0 - 3.5 10*3/uL 10/30/2024 3:46 PM EDT [facility] Monocytes Absolute 0.4 0.0 - 0.9 10*3/uL 10/30/2024 3:46 PM EDT [facility] Eosinophils Absolute 0.1 0.0 - 0.4 10*3/uL 10/30/2024 3:46 PM EDT [facility] Basophils Absolute 0.0 0.0 - 0.2 10*3/uL 10/30/2024 3:46 PM EDT [facility] Differential Type AUTOMATED DIFFERENTIAL 10/30/2024 3:46 PM EDT [facility] Blood Venous blood / Unknown Venipuncture / Unknown 10/30/2024 3:29 PM EDT 10/30/2024 3:30 PM EDT us Maryanne Najera DO LAB BLOOD ORDERABLES Final R esult [address] [place] [address], [place] * PST TOP (10/30/2024 3:28 PM EDT) Extra Tube Auto Resulted 10/30/2024 5:01 PM EDT [facility] Blood Venous blood / Unknown 10/30/2024 3:28 PM EDT 10/30/2024 3:31 PM EDT us Maryanne Najera DO LAB BLOOD ORDERABLES Final R esult [address] [place] [address], [place] * Light Blue Top (10/30/2024 3:28 PM EDT) Extra Tube Auto Resulted 10/30/2024 5:01 PM EDT [facility] Blood Venous blood / Unknown 10/30/2024 3:28 PM EDT 10/30/2024 3:31 PM EDT us Maryanne Najera DO LAB BLOOD ORDERABLES Final R esult [facility] [address] [place] [address], [place] * (ABNORMAL) Basic Metabolic Panel (10/30/2024 3:28 PM EDT) SODIUM 140 134 - 146 mmol/L 10/30/2024 3:48 PM EDT [facility] POTASSIUM 3.9 3.5 - 5.0 mmol/L 10/30/2024 3:48 PM EDT [facility] CHLORIDE 109 98 - 109 mmol/L 10/30/2024 3:48 PM EDT [facility] CARBON DIOXIDE 24 22 - 32 mmol/L 10/30/2024 3:48 PM EDT [facility] ANION GAP 7 5 - 15 mmol/L 10/30/2024 3:48 PM EDT [facility] BLOOD UREA NITROGEN 18 5 - 23 mg/dL 10/30/2024 3:48 PM EDT [facility] CREATININE 1.17(H) 0.40 - 1.00 mg/dL 10/30/2024 3:48 PM EDT [facility] Comment:METHOD TRACEABLE TO IDMS STANDARD GLUCOSE 102(H) 65 - 99 mg/dL 10/30/2024 3:48 PM EDT [facility] CALCIUM 8.6 8.5 - 10.5 mg/dL 10/30/2024 3:48 PM EDT [facility] EGFR Non-Race Dependent 63 >=60 ml/min/1.7 3sq.m 10/30/2024 3:48 PM EDT [facility] Comment: eGFR not reported due to non-numeric value for Creatinine. Reported eGFR is based on the CKD-EPI 2020 equation that does not use a race coefficient. Blood Venous blood / Unknown 10/30/2024 3:28 PM EDT 10/30/2024 3:31 PM EDT us Maryanne Najera DO LAB BLOOD ORDERABLES Final R esult [facility] [address] [place] [address], [place] from Last 3 Months Insurance [address] [place] [address] [employer]
--- OUTSIDE RECORDS SUMMARY | 2024-12-04 11:26 | XMS_ITS | Encounter Summary ---
Author Organization [facility] Address [address] [place] [address] Care Team Providers Care Make Up Man Name Role Phone Lucas Mayers MD Primary Care Provider [phone] Reason for Visit * Reason Comments Med Refill Encounter Details Date Type Department Care Team (Late st Contact Info) Description 06/26/2024 Refill [facility] [address] [place] [address] [place] [phone] Patrick Randle MD [address] [address] Closed bimalleolar fracture of left ankle, initial encounter Social History Tobacco Use Types Packs/Day Years Used Date Smoking Tobacco: Never Smokeless Tobacco: Never Alcohol Use Standard Drinks/Week Comments Never 0 (1 standard drink = 0.6 oz pur e alcohol) [facility] Utilities Answer Date Recorded In the past 12 months has [employer], gas, oil, or water [employer] threatened to shut off services in your home? No 06/11/2024 Humiliation, Afraid, Rape, and Kick questionnair e Answer Date Recorded Within the last year, have y ou been afraid of your partner or ex-partner? No 06/11/2024 Emotionally Abused Not on file 06/11/2024 Physically Abused Not on file 06/11/2024 Sexually Abused Not on file 06/11/2024 Overall Financial Resource Strain (CARDIA) Answe r Date Recorded How hard is it for you to pa y for the very basics like food, housing, medical care, and heating? Not very hard 06/11/2024 PHQ-2 Answer Date Recorded Patient Health Questionnaire-2 Score 0 06/11/2024 Housing Stability Vital Sign Answer Juan Manuel e Recorded In the last 12 months, was t here a time when you were not able to pay the mortgage or rent on time? No 06/11/2024 Number of Times Moved in the Last Year Not on fi le 06/11/2024 At any time in the past 12 m [facility], were you homeless or living in a assisted (including now)? No 06/11/2024 Hunger Vital Sign [...] PM EDT documented as of this encounter Miscellaneous Notes * Telephone Encounter - Shanita Wakefield MA - 06/26/2024 1:09 PM EDT Approving, but needs appt for additional refills. documented in this encounter Plan of Treatment Upcoming Encounters Date Type Department Care Team (Late st Contact Info) Description 06/02/2025 1:00 PM EDT [facility] [address] [place] [address] [place] [address] Patrick Randle MD [address] [place] [phone] documented as of this encounter Visit Diagnoses Diagnosis Closed bimalleolar fracture of left ankle, initial encounter documented in this encounter Care Teams Make Up Man Relationship Specialty Start Date End Date Lucas Mayers MD [address] [place] [address] PCP - General Family Medicine 05/28/24 documented as of this encounter
--- OUTSIDE RECORDS SUMMARY | 2024-12-04 11:26 | XMS_ITS | Clinical Summary ---
Author Organization [facility] Address [address] [place] [address] Care Team Providers Care Pickle Maker Name Role Phone Lucas Mayers MD Primary Care Provider [phone] Allergies No known active allergies Medications ondansetron ODT (Zofran-ODT) 4 mg disintegrating tablet Take 4 mg by mouth every 8 (eight) hours if needed. 05/18/19 25 Active ergocalciferol (Vitamin D-2) 1.25 MG (19515 Units) capsuleIndications :S/P surgical manipulation of ankle joint Take 1 capsule (50,000 Units) by mouth 1 (one) time per week. 4 capsule 11 05/29/19 25 026 Active Additional Information Patient not taking.Reported on 09/03/2024 ergocalciferol (Vitamin D-2) 1.25 MG (16978 Units) capsuleIndications :Closed bimalleolar fracture of left ankle, initial encounter Take 1 capsule by mouth once a week 4 capsule 06/27/19 25 Active Additional Information Patient not taking.Reported on 09/03/2024 cholecalciferol (Vitamin D-3) 50 MCG (1999 UT) tablet Take by mouth in the morning. 05/29/19 25 Active Active Problems No known active problems Encounters Date Type Department Care Team Description 12/02/2024 3:00 PM EDT Follow-Up [facility] [address] [place] [address] [place] [phone] Patrick Randle MD Closed bimalleolar fracture, left, with routine healing, subsequent encounter (Primary Dx) 12/02/2024 9:23 AM EDT - 12/02/2024 11:59 PM [address]T Hospital Encounter [facility] [address] [place] [address] [place] [address] Closed bimalleolar fracture of left ankle, initial encounter Discharge Disposition: Home or Self Care (01) 09/03/2024 9:30 AM EDT Follow-Up [facility] [address] [place] [address] [place] [address] Patrick Randle MD Closed bimalleolar fracture of left ankle, initial encounter (Primary Dx) 09/03/2024 8:38 AM EDT - 09/03/2024 11:59 PM EDT Hospital Encounter [facility] [address] [place] [address] [place] [address] Closed bimalleolar fracture of left ankle, initial encounter Discharge Disposition: Home or Self Care () from Last 3 Months Family History Medical History Relation Name Comments No Known Problems Father No Known Problems Mother Relation Name Status Comments Father Mother Social History Tobacco Use Types Packs/Day Years Used Date Smoking Tobacco: Never Smokeless Tobacco: Never Tobacco Cessation:Counseling Given: Not Answered Alcohol Use Standard Drinks/Week Comments Never 0 (1 standard drink = 0.6 oz pur e alcohol) [facility] Utilities Answer Date Recorded In the past 12 months has [facility] [employer], gas, oil, or water [employer] threatened to shut off services in your [...] any time in the past 12 m [facility], were you homeless or living in a intermediate (including now)? No 06/11/2024 Hunger Vital Sign [...] not to disclose 2024 2:30 PM EDT Last Filed Vital Signs Vital Sign Reading Time Taken Comments Blood Pressure 144/91 05/28/2024 5:26 PM EDT Pulse 118 05/28/2024 5:26 PM EDT Temperature 36 C (96.8 F) 05/28/2024 3:30 PM EDT Respiratory Rate 15 05/28/2024 5:26 PM EDT Oxygen Saturation 98% 05/28/2024 5:26 PM EDT Inhaled Oxygen Concentration - - Weight 77.1 kg (170 lb) 12/02/2024 3:06 PM EDT Height 157.5 cm (5' 2 ) 12/02/2024 3:06 PM EDT Body Mass Index 31.09 12/02/2024 3:06 PM EDT Plan of Treatment Upcoming Encounters Date Type Department Care Team (Late st Contact Info) Description 06/02/2025 1:00 PM EDT Follow-Up [facility] [address] [place] [address] [place] [address] Patrick Randle MD [address] [address] Health Maintenance Due Date Last Done Comments Varicella Vaccines (1 of + 2-dose series) 2003 Hepatitis B Vaccines (1 of 3 - 19+ 3-dose series) 2009 Pap Smear 2011 Adult Tetanus 2012 Cervical Cancer Screening 2020 HPV/Cotest 2020 COVID-19 Vaccine (1 - 2023-2 5 season) 2024 Influenza Vaccine (#1) 2024 Depression Screening 12/02/2025 12/02/2024 Zoster Vaccines (1 of 2) 2040 HIB Vaccines Aged Out No longer eligi ble based on patient's age to complete this topic HPV Vaccines Aged Out No longer eligi ble based on patient's age to complete this topic IPV Vaccines Aged Out No longer eligi ble based on patient's age to complete this topic Meningococcal B Vaccine Aged Out No l onger eligible based on patient's age to complete this topic Meningococcal Vaccine Aged Out No keshia quiana eligible based on patient's age to complete this topic Pneumococcal Vaccine: Pediat rics (0 to 5 Years) and At-Risk Patients (6 to 64 Years) Aged Out No longer eligi ble based on patient's age to complete this topic Rotavirus Vaccines Aged Out No longer eligible based on patient's age to complete this topic Medical Devices Implanted Type Area Four Slide Machine Operator Device Identifier Shelf Expiration Date Model / Serial / Lot 9 Hole Plate Implanted:Qty: 1 on 05/28/2024 by Patrick Randle MD at [facility] Plate Left: Ankle [employer] [id number] / / Screw,Bone,Ft,T 10,3.5x18mm - [id number] Implanted:Qty: 2 on 05/28/2024 by Patrick Randle MD at [facility] Screw Left: Ankle [employer] [id number] / / Screw,Bone,Ft,T 10,3.5x16mm - [id number] Implanted:Qty: 2 on 05/28/2024 by Patrick Randle MD at [facility] Screw Left: Ankle [employer] [id number] / / Screw,Bone,Ft,T 10,3.5x22mm - [id number] Implanted:Qty: 1 on 05/28/2024 by Patrick Randle MD at [facility] Screw Left: Ankle [employer] [id number] / / 3.5 X 14 Locking Screw Implanted:Qty: 1 on 05/28/2024 by Patrick Randle MD at [facility] Screw Left: Ankle [employer] [id number] / / Screw,Bone,Ft,T 10,3.5x14mm - [id number] Implanted:Qty: 1 on 05/28/2024 by Patrick Randle MD at [facility] Screw Left: Ankle [employer] [id number] / / 4.0 X 38 Cannulated Screw Implanted:Qty: 1 on 05/28/2024 by Patrick Randle MD at [facility] Screw Left: Ankle [employer] [id number] / / Screw,Bone,Asni s-Iii,4x40mm - [id number] Implanted:Qty: 1 on 05/28/2024 by Patrick Randle MD at [facility] Screw Left: Ankle [employer] [id number] / / Procedures Procedure Name Priority Date/Time Associated Diagnosis Comments XR ANKLE 3+ VIEWS LEFT Routine 12/02/2024 2:51 PM EDT Closed bimalleolar fracture of left ankle, initial encounter XR ANKLE 3+ VIEWS LEFT Routine 09/03/2024 9:26 AM EDT Closed bimalleolar fracture of left ankle, initial encounter from Last 3 Months Results * XR ankle 3+ views left (12/02/2024 2:51 PM EDT) Only the most recent of2 resultswithin the time period is included. Anatomical Region Laterality Modality Lower Extremities, Ankle Left Compute d Radiography 12/02/2024 3:04 PM EDT Impressions 12/02/2024 4:35 PM EDT * No acute osseous abnormalities. * Distal tibia fibula fracture fixation hardware present without complication. * Apparent healing of tibia-fibula fractures. Approved by:Sally Stock12/02/2024 3:36 PM. Pj Patel MD,have reviewed the image(s) and agree with [...] Multiple radiographs of the left ankle most [id number]/03/2024 FINDINGS: Distal tibia fibula fracture fixation hardware [...] tibia-fibula fractures. Approved by:Sally Stock12/02/2024 3:36 PM. Pj Patel MD,have reviewed the image(s) and agree with thefindings in this report. Electronically signed: Pj Crump MD. Patrick Randle MD IMG XR PROCEDURES Final Result from Last 3 Months Insurance [employer] Care Teams Pickle Maker Relationship Specialty Start Date End Date Lucas Mayers MD [address] [place] [address] PCP - General Family Medicine 05/28/24
[2024-12-04 12:31] LABS: Blood Urea Nitrogen 10.0 mg/dL (7.0-18.0); Calcium 8.8 mg/dL (8.5-10.1); Carbon Dioxide 27.8 mmol/L (21.0-32.0); Chloride 105 mmol/L (98-107); Estimated GFR (African America >60 (>=60 mL/min/1.73m^2); Estimated GFR (Non-African Ame >60 (>=60 mL/min/1.73m^2); Potassium 3.5 mmol/L (3.5-5.1); Sodium 144 mmol/L (136-145); Uric Acid 4.3 mg/dL (2.6-6.0)
== END 2024-12-04 11:24 | disposition home or self-care (01) ==
LOC: LAB 11:24
PROVIDERS: Family Provider Family Medicine; Visit Provider Urology
DX: N20.0 Calculus of kidney (principal)
CPT/HCPCS: 36415; 82310; 82374; 82435; 82565; 83970; 84100; 84132; 84295; 84520; 84550